=== PATIENT | female | born 1995 | race African-American/Black ===

== ENCOUNTER 2017-09-21 15:18 | Emergency (ER) | payer MEDICAID ==
[~2017-09-21] VITALS: Ht 172.7 cm; Wt 63.5 kg
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
[2017-09-21] MEDS ORDERED: ZOFRAN ODT4 MG ORAL (17:14)
[2017-09-21 17:18] LABS: APPEARANCE,URINE CLEAR; KETONES,URINE 1+ (NEGATIVE); LEUKOCYTE ESTERASE ,URINE 2+ (NEGATIVE); NITRITE,URINE NEGATIVE (NEGATIVE); PH,URINE 6.5 (4.5-8.0); PROTEIN,URINE 2+ (NEGATIVE); UROBILINOGEN,URINE 4 MG/DL (0.0-1.0)
[2017-09-21 17:33] LABS: BACTERIA,URINE FEW /HPF; SQUAMOUS EPITHELIAL CELL,UR FEW /LPF (NONE/OCC)
[2017-09-21] MEDS ORDERED: TYLENOL EXTRA500 MG ORAL (17:46)
[2017-09-21] MEDS ORDERED: ZANTAC150 MG ORAL (17:46)
[2017-09-21 18:00] VITALS: BP 112/73
== END 2017-09-21 18:00 | disposition home or self-care (01) ==
LOC: EMR 16:12
DX: B34.9 Viral infection, unspecified (principal); E86.0 Dehydration
CPT/HCPCS: 36415; 81001; 81025; 99284

== ENCOUNTER 2017-12-16 20:52 | Emergency (ER) | payer MEDICAID ==
[~2017-12-16] VITALS: Ht 172.7 cm; Wt 62.1 kg
[~2017-12-16 20:52] MED LIST: TYLENOL EXTRA500 MG ORAL; ZANTAC150 MG ORAL; ZOFRAN ODT4 MG ORAL
[2017-12-16] MEDS ORDERED: IBUPROFEN600 MG ORAL (21:39)
[2017-12-16] MEDS ORDERED: Dexamethasone 4mg/ml vial ORAL ONE (21:45)
--- NOTE | 2017-12-16 21:48 | Emergency Room Report ---
History of Present Illness General Chief Complaint: Sore Throat Source: Patient Present Illness HPI 22-year-old female presents with left-sided sore throat and bilateral ear pain for 1 week no associated fever or chills or trouble swallowing, eating multiple sick contacts with friends children No frequent otitis or pharyngitis no History of diabetes Allergies: Coded Allergies: No Known Allergies (Unverified , 09/21/17) Patient History Past Medical History: none Past Surgical History: none Pertinent Family History: none Social History: Denies: smoking, alcohol use, drug use Last Menstrual Period: nov 23 Now: No : 2 Immunizations: UTD Reviewed Nursing Documentation: PMH: Agreed, PSxH: Agreed Nursing Documentation-PMH Past Medical History: No Stated History Review of Systems All Other Systems: negative except mentioned in HPI Physical Exam Vital Signs Date Time Temp Pulse Resp B/P (MAP) Pulse Ox O2 Delivery O2 Flow Rate FiO2 12/16/17 21:21 99.2 89 18 114/72 99 Room Air 99.1 Sp02 EP Interpretation: reviewed, normal General Appearance: normal inspection, well appearing, no apparent distress, alert, GCS 15, non-toxic Head: normocephalic, atraumatic Eyes: bilateral eye PERRL, bilateral eye EOMI ENT: normal ENT inspection, hearing grossly normal, normal pharynx, no angioedema, normal voice, TMs + canals normal, uvula midline, moist mucus membranes Neck: normal inspection, full range of motion, supple, thyroid normal, no meningismus, no bony tend Respiratory: normal inspection, lungs clear, normal breath sounds, no rhonchi, no respiratory distress, no retraction, no accessory muscle use, no wheezing, speaking full sentences Cardiovascular #1: regular rate, rhythm, no edema, no JVD, normal capillary refill Gastrointestinal: normal inspection, normal bowel sounds, non tender, soft, no mass, no peritonitis, non-distended, no guarding, no hernia, no pulsatile mass Genitourinary: no CVA tenderness Musculoskeletal: normal inspection, back normal, normal range of motion, no calf tenderness, pelvis stable, Napoleon's Sign negative Neurologic: normal inspection, alert, oriented x3, responsive, story analyst III-XII nml as tested, motor strength/tone normal, cerebellar normal, normal gait, speech normal Psychiatric: normal inspection, judgement/insight normal, mood/affect normal, no suicidal/homicidal ideation, no delusions Skin: normal inspection, normal color, no rash Lymphatic: normal inspection, no adenopathy Medical Decision Making Diagnostic Impression: Primary Impression: Sore throat ER Course Vital signs stable, afebrile Oropharynx clear, no otitis media, no strep Gave empiric Decadron and Motrin Rx Motrin as needed for sore throat Likely viral pharyngitis ER course: Patient has remained stable during ED stay. Disposition: Patient is to be discharged to home. Prescriptions given are motrin Patient is instructed to follow up with their primary care doctor within 5 days. Strict return precautions discussed with patient such as fever, chills, worsening/severe pain, nausea, vomiting, which may indicate severe illness. Patient verbalizes understanding and agrees with plan. Please note that this Emergency Department Report was dictated using Alliance Cardremote pilot operator technology software, occasionally this can lead to erroneous entry secondary to interpretation by the dictation equipment Last Vital Signs Date Time Temp Pulse Resp B/P (MAP) Pulse Ox O2 Delivery O2 Flow Rate FiO2 12/16/17 21:21 99.2 89 18 114/72 99 Room Air 99.1 Status: improved Disposition: HOME, SELF-CARE Condition: Improved Scripts Ibuprofen* (MOTRIN*) 600 Mg Tablet 600 MG ORAL THREE TIMES A DAY for sore throat for 7 Days, #30 TAB 0 Refills Prov: NANCY ANAYA M.D. 12/16/17 Patient Instructions: Pharyngitis, [id number] NANCY ANAYA M.D. Dec 16, 2017 21:48
[2017-12-16 22:05] VITALS: BP 114/72
== END 2017-12-16 22:05 | disposition home or self-care (01) ==
LOC: EMR 21:44
DX: J02.9 Acute pharyngitis, unspecified (principal)
CPT/HCPCS: 99283; J1100

== ENCOUNTER 2018-01-31 20:05 | Emergency (ER) | payer MEDICAID ==
[~2018-01-31] VITALS: Ht 172.7 cm; Wt 65.8 kg
[~2018-01-31 20:05] MED LIST changes: +IBUPROFEN600 MG ORAL
[2018-01-31] MEDS ORDERED: NKM (20:16)
[2018-01-31 21:11] LABS: APPEARANCE,URINE CLEAR; BILIRUBIN, URINE NEGATIVE (NEGATIVE); GLUCOSE, URINE (UA) NEGATIVE (NEGATIVE); KETONES,URINE NEGATIVE (NEGATIVE); LEUKOCYTE ESTERASE ,URINE 1+ (NEGATIVE); NITRITE,URINE NEGATIVE (NEGATIVE); PH,URINE 6 (4.5-8.0); PROTEIN,URINE NEGATIVE (NEGATIVE); UROBILINOGEN,URINE 1 MG/DL (0.0-1.0)
[2018-01-31 21:14] LABS: COLOR,URINE YELLOW
[2018-01-31 21:29] VITALS: BP_SYST 116; BP_SYST 123; BP_DIAS 53; BP_DIAS 66
--- NOTE | 2018-02-01 10:17 | Diagnostic Imaging Report ---
Indication: Bleeding, positive test, pelvic pain Technique: Transabdominal and transvaginal images Comparison: none Findings: Bladder was empty at the time of exam, so pelvic viscera not identifiable on transabdominal images. Transabdominal images demonstrate uterus measuring 8.8 cm in length by 5.1 cm AP. Within the endometrium, there is a gestational sac. This demonstrates a yolk sac, but no pole and no heart activity. Estimated gestational age by mean sac diameter is 5 weeks 4 days. No subchorionic hemorrhage demonstrated. No myometrial abnormality. Right ovary measures 3.5 cm length. The left ovary measures 2.6 cm length. No free cul-de-sac fluid demonstrated Impression: Positive for intrauterine gestational sac. Estimated gestational age 5 weeks 4 days by mean sac diameter. Yolk sac is identified. No pole or heart activity demonstrated. Differential considerations include very early with parts not yet visible, versus nonviable . Correlate with serial beta hCGs, consider follow-up sonography as clinically indicated
--- NOTE | 2018-02-02 02:46 | Emergency Room Report ---
History of Present Illness General Chief Complaint: Complications Source: Patient Present Illness HPI Patient presents with complaints of lower abdominal cramping Denies any bleeding at this time however triage reported questionable scant blood Denies any vomiting or diarrhea denies any chest pain Denies any fevers or chills Denies any recent trauma Patient has not had any ultrasound for this at she feels that she is likely 4 weeks Allergies: Coded Allergies: No Known Allergies (Unverified , 09/21/17) Patient History Past Medical History: see triage record Pertinent Family History: none Last Menstrual Period: 12/19/17 Now: No Reviewed Nursing Documentation: PMH: Agreed; PSxH: Agreed Nursing Documentation-PMH Past Medical History: No Stated History Review of Systems All Other Systems: negative except mentioned in HPI Physical Exam Vital Signs Date Time Temp Pulse Resp B/P (MAP) Pulse Ox O2 Delivery O2 Flow Rate FiO2 01/31/18 20:12 98.5 81 16 116/66 97 Room Air 98.4 Sp02 EP Interpretation: reviewed, normal General Appearance: well appearing, no apparent distress Head: normocephalic, atraumatic Eyes: bilateral eye PERRL, bilateral eye EOMI ENT: hearing grossly normal, normal pharynx, TMs + canals normal, uvula midline Neck: full range of motion, supple, no meningismus, no bony tend Respiratory: lungs clear, normal breath sounds, no rhonchi, no respiratory distress, no retraction, no accessory muscle use Cardiovascular #1: normal peripheral pulses, regular rate, rhythm, no edema, no gallop, no JVD, no murmur Gastrointestinal: normal bowel sounds, non tender, soft, no mass, no organomegaly, non-distended, no guarding, no hernia, no pulsatile mass, no rebound Genitourinary: no CVA tenderness Musculoskeletal: normal inspection Neurologic: oriented x3, responsive, caddy packer III-XII nml as tested, motor strength/ tone normal, sensory intact Psychiatric: mood/affect normal Skin: normal color, no rash, warm/dry, palpation normal Lymphatic: normal inspection, no adenopathy Medical Decision Making Diagnostic Impression: Primary Impression: threatened miscarriage ER Course With the patient's history and examination, multiple differentials considered, including but not limited to , ectopic , ovarian torsion, gastritis, cholecystitis, pancreatitis, appendicitis Patient's urine sample does not show any infection Ultrasound shows intrauterine however a very early And patient will have close outpatient follow-up Labs Test 01/31/18 19:30 01/31/18 20:30 Human Chorionic Gonadotropin, Quant 94082 mIU/mL (1-6) Urine Color Yellow Urine Appearance Clear Urine pH 6 (4.5-8.0) Urine Specific [place] 1.020 (1.005-1.035) Urine Protein Negative (NEGATIVE) Urine Glucose (UA) Negative (NEGATIVE) Urine Ketones Negative (NEGATIVE) Urine Occult Blood 3+ (NEGATIVE) Urine Nitrite Negative (NEGATIVE) Urine Bilirubin Negative (NEGATIVE) Urine Urobilinogen 1 MG/DL (0.0-1.0) Urine Leukocyte Esterase 1+ (NEGATIVE) Urine RBC 2-4 /HPF (0 - 2) Urine WBC 0-2 /HPF (0 - 2) Urine Squamous Epithelial Cells Moderate /LPF (NONE/OCC) Urine Bacteria Few /HPF (NONE) Urine Mucus Moderate /LPF (NONE/OCC) Urine HCG, Qualitative Positive (NEGATIVE) CT/MRI/US Diagnostic Results CT/MRI/US Diagnostic Results : Impression pelvic ultrasound:Impression: Positive for intrauterine gestational sac. Estimated gestational age 5 weeks 4 days by mean sac diameter. Yolk sac is identified. No pole or heart activity demonstrated. Differential considerations include very early with parts not yet visible, versus nonviable . Correlate with serial beta hCGs, consider follow-up sonography as clinically indicated Last Vital Signs Date Time Temp Pulse Resp B/P (MAP) Pulse Ox O2 Delivery O2 Flow Rate FiO2 01/31/18 21:29 98.5 79 16 116/66 97 Room Air 98.4 Status: improved Disposition: HOME, SELF-CARE Condition: Improved Referrals: [facility],REFERRING (PCP) Patient Instructions: Threatened Miscarriage, [id number] Additional Instructions: Patient is provided with the discharge instructions notified to follow up with primary doctor in the next 2-3 days otherwise return to the er with any worsening symptoms. Please note that this report is being documented using [employer] to [employer] technology. This can lead to erroneous entry secondary to incorrect interpretation by the dictating instrument. Malcolm Noyola DO Feb 02, 2018 02:46
== END 2018-01-31 21:30 | disposition home or self-care (01) ==
LOC: EMR 21:12
DX: O20.0 Threatened abortion (principal); Z3A.01 Less than 8 weeks gestation of pregnancy
CPT/HCPCS: 36415; 76801; 76810; 81003; 81025; 84702; 86900; 86901; 99284

== ENCOUNTER 2018-09-26 12:53 | Emergency (ER) | payer MEDICAID ==
[~2018-09-26] VITALS: Ht 172.7 cm; Wt 73.5 kg
[~2018-09-26 12:53] MED LIST changes: +NKM
[2018-09-26 13:52] LABS: APPEARANCE,URINE CLOUDY; BILIRUBIN, URINE NEGATIVE (NEGATIVE); GLUCOSE, URINE (UA) NEGATIVE (NEGATIVE); KETONES,URINE 1+ (NEGATIVE); LEUKOCYTE ESTERASE ,URINE 3+ (NEGATIVE); NITRITE,URINE NEGATIVE (NEGATIVE); PH,URINE 7 (4.5-8.0); PROTEIN,URINE 1+ (NEGATIVE); UROBILINOGEN,URINE 1 MG/DL (0.0-1.0)
[2018-09-26 13:54] LABS: COLOR,URINE YELLOW
[2018-09-26 14:02] LABS: EOSINOPHILS % (AUTO) 0.3 % (0.0-3.0); HEMATOCRIT 37.2 % (37.0-47.0); HEMOGLOBIN 12.1 G/DL (12.0-16.0); LYMPHOCYTES % (AUTO) 23.3 % (20.0-45.0); MEAN CORPUSCULAR VOLUME 78 FL (80-99); MONOCYTES % (AUTO) 6.3 % (1.0-10.0); NEUTROPHILS % (AUTO) 69.1 % (45.0-75.0); PLATELET COUNT 222 K/UL (150-450); RED BLOOD COUNT 4.77 M/UL (4.20-5.40); RED CELL DISTRIBUTION WIDTH 14.8 % (11.6-14.8)
[2018-09-26 14:28] LABS: ANION GAP 46 mmol/L (5-15); BLOOD UREA NITROGEN 5 mg/dL (7-18); CALCIUM 7.5 MG/DL (8.5-10.1); CARBON DIOXIDE 16 MMOL/L (21-32); CHLORIDE 93 MMOL/L (98-107); CREATININE 0.6 MG/DL (0.55-1.30); POTASSIUM 3.5 MMOL/L (3.5-5.1); SODIUM 155 MMOL/L (136-145)
[2018-09-26 14:34] LABS: ALANINE AMINOTRANSFERASE 13 U/L (12-78); ALBUMIN 3.2 G/DL (3.4-5.0); ALKALINE PHOSPHATASE 54 U/L (46-116); ASPARTATE AMINO TRANSFERASE 12 U/L (15-37); BILIRUBIN,TOTAL 0.5 MG/DL (0.2-1.0)
--- NOTE | 2018-09-26 15:18 | Diagnostic Imaging Report ---
Indication: Pelvic pain and vaginal bleeding, positive test Technique: Transabdominal and transvaginal images. Doppler interrogation of the bilateral ovaries Comparison: 01/31/2018 Findings: Retroverted uterus measures 10.3 cm length by 6.8 cm AP. There is an intrauterine gestational sac. This demonstrates a yolk sac, but no pole demonstrated. Mean sac diameter is 25 mm, corresponding to estimated gestational age of 5 weeks 2 days. No subchorionic hemorrhage demonstrated. Left ovary measures 3.8 cm in length there is a right ovary measures 3.3 cm length. No adnexal mass demonstrated. Normal ovarian blood flow. No free cul-de-sac fluid. Possible bilateral paraovarian varicosities noted Impression: Intrauterine gestational sac, containing a yolk sac but no pole. Findings consistent with anembryonic Negative for adnexal mass Bilateral paraovarian varicosities.
--- NOTE | 2018-09-26 16:28 | Emergency Room Report ---
History of Present Illness General Chief Complaint: Complications Source: Patient Present Illness HPI Patient states that she found out 2 weeks ago she is . She states that today she developed suprapubic cramping and vaginal bleeding. She states it has been light bleeding. She denies dysuria or hematuria. She has fever or chills. She denies nausea or vomiting. She doesn't have ongoing pain. She did go to a women's health clinic to confirm her . She has no other complaints. Allergies: Coded Allergies: No Known Allergies (Unverified , 09/21/17) Patient History Past Medical History: none, see triage record Social History: Denies: smoking, alcohol use, drug use Last Menstrual Period: aug 08 Now: Yes : 5 Para: 1 Reviewed Nursing Documentation: PMH: Agreed; PSxH: Agreed Nursing Documentation-PMH Past Medical History: No Stated History Review of Systems All Other Systems: negative except mentioned in HPI Physical Exam Vital Signs Date Time Temp Pulse Resp B/P (MAP) Pulse Ox O2 Delivery O2 Flow Rate FiO2 09/26/18 13:12 98.2 77 18 104/70 98 Room Air Sp02 EP Interpretation: reviewed, normal General Appearance: no apparent distress, alert, GCS 15, non-toxic Head: normocephalic, atraumatic Eyes: bilateral eye normal inspection, bilateral eye PERRL ENT: hearing grossly normal, normal pharynx, no angioedema, normal voice Neck: full range of motion, supple/symm/no masses Respiratory: chest non-tender, lungs clear, normal breath sounds, no respiratory distress, no retraction, no accessory muscle use, speaking full sentences Cardiovascular #1: regular rate, rhythm, no edema Gastrointestinal: normal bowel sounds, soft, non-distended, no guarding, no rebound, tenderness - mild suprapubic ttp Rectal: deferred Musculoskeletal: back normal, gait/station normal, normal range of motion, non- tender Neurologic: alert, oriented x3, responsive, motor strength/tone normal, sensory intact, speech normal Psychiatric: judgement/insight normal, memory normal, mood/affect normal, no suicidal/homicidal ideation Skin: normal color, no rash, warm/dry, well hydrated Medical Decision Making Diagnostic Impression: Primary Impression: Threatened ER Course This patient is found to have an elevated hCG at 83,000. The patient's pelvic ultrasound does show a gestational sac with a yolk sac, however, there is no pole and although this could be a very early viable , this combination of hCG and ultrasound is concerning for an abnormal and an embryonic . Patient was very distressed about this. She was crying hysterically. She was instructed to follow-up at the women's health clinic in 3 -5 days for repeat hCG and ultrasound. Treatment at this time will be expectant. I will give the patient pain medication in case she does have more bleeding and cramping. She was given very close return precautions and follow- up instructions. Please note that this Emergency Department Report was dictated using Endomondoinside sales account manager technology software, occasionally this can lead to erroneous entry secondary to interpretation by the dictation equipment. Laboratory Tests Test 09/26/18 13:25 09/26/18 13:31 Urine Color Yellow Urine Appearance Cloudy Urine pH 7 (4.5-8.0) Urine Specific [place] 1.015 (1.005-1.035) Urine Protein 1+ (NEGATIVE) H Urine Glucose (UA) Negative (NEGATIVE) Urine Ketones 1+ (NEGATIVE) H Urine Blood 5+ (NEGATIVE) H Urine Nitrite Negative (NEGATIVE) Urine Bilirubin Negative (NEGATIVE) Urine Urobilinogen 1 MG/DL (0.0-1.0) H Urine Leukocyte Esterase 3+ (NEGATIVE) H Urine RBC 5-10 /HPF (0 - 2) H Urine WBC 10-15 /HPF (0 - 2) H Urine Squamous Epithelial Cells Moderate /LPF (NONE/OCC) H Urine Bacteria Moderate /HPF (NONE) H Urine Mucus Moderate /LPF (NONE/OCC) H White Blood Count 7.0 K/UL (4.8-10.8) Red Blood Count 4.77 M/UL (4.20-5.40) Hemoglobin 12.1 G/DL (12.0-16.0) Hematocrit 37.2 % (37.0-47.0) Mean Corpuscular Volume 78 FL (80-99) L Mean Corpuscular Hemoglobin 25.3 PG (27.0-31.0) L Mean Corpuscular Hemoglobin Concent 32.5 G/DL (32.0-36.0) Red Cell Distribution Width 14.8 % (11.6-14.8) Platelet Count 222 K/UL (150-450) Mean Platelet Volume 7.0 FL (6.5-10.1) Neutrophils (%) (Auto) 69.1 % (45.0-75.0) Lymphocytes (%) (Auto) 23.3 % (20.0-45.0) Monocytes (%) (Auto) 6.3 % (1.0-10.0) Eosinophils (%) (Auto) 0.3 % (0.0-3.0) Basophils (%) (Auto) 1.0 % (0.0-2.0) Sodium Level 155 MMOL/L (136-145) H Potassium Level 3.5 MMOL/L (3.5-5.1) Chloride Level 93 MMOL/L (98-107) L Carbon Dioxide Level 16 MMOL/L (21-32) L Anion Gap 46 mmol/L (5-15) H Blood Urea Nitrogen 5 mg/dL (7-18) L Creatinine 0.6 MG/DL (0.55-1.30) Estimate Glomerular Filtration Rate > 60 mL/min (>60) Glucose Level 77 MG/DL (74-106) Calcium Level 7.5 MG/DL (8.5-10.1) L Total Bilirubin 0.5 MG/DL (0.2-1.0) Aspartate Amino Transferase (AST) 12 U/L (15-37) L Alanine Aminotransferase (ALT) 13 U/L (12-78) Alkaline Phosphatase 54 U/L (46-116) Total Protein 6.4 G/DL (6.4-8.2) Albumin 3.2 G/DL (3.4-5.0) L Globulin 3.2 g/dL Albumin/Globulin Ratio 1.0 (1.0-2.7) Human Chorionic Gonadotropin, Quant 56114 mIU/mL (1-6) H CT/MRI/US Diagnostic Results CT/MRI/US Diagnostic Results : Imaging Test Ordered: US Pelvis Impression indings: Retroverted uterus measures 10.3 cm length by 6.8 cm AP. There is an intrauterine gestational sac. This demonstrates a yolk sac, but no pole demonstrated. Mean sac diameter is 25 mm, corresponding to estimated gestational age of 5 weeks 2 days. No subchorionic hemorrhage demonstrated. Left ovary measures 3.8 cm in length there is a right ovary measures 3.3 cm length. No adnexal mass demonstrated. Normal ovarian blood flow. No free cul-de-sac fluid. Possible bilateral paraovarian varicosities noted Impression: Intrauterine gestational sac, containing a yolk sac but no pole. Findings consistent with anembryonic Negative for adnexal mass Bilateral paraovarian varicosities. Last Vital Signs Date Time Temp Pulse Resp B/P (MAP) Pulse Ox O2 Delivery O2 Flow Rate FiO2 09/26/18 13:12 98.2 77 18 104/70 98 Room Air Status: improved Disposition: HOME, SELF-CARE Condition: Improved Referrals: NON PHYSICIAN (PCP) Adide Aguilar DO Sep 26, 2018 16:28
[2018-09-26] MEDS ORDERED: NORCO 5-325 TA1 EACH ORAL (16:29)
[2018-09-26] MEDS ORDERED: IBUPROFEN600 MG ORAL (16:29)
[2018-09-26 16:42] VITALS: BP 106/72
== END 2018-09-26 16:40 | disposition home or self-care (01) ==
LOC: EMR 13:47
DX: O20.0 Threatened abortion (principal); Z3A.01 Less than 8 weeks gestation of pregnancy
CPT/HCPCS: 36415; 76801; 76830; 80053; 81003; 84702; 85025; 86900; 86901; 87086; 96360; 99284

== ENCOUNTER 2020-07-16 12:33 | Emergency (ER) | payer MEDICAID ==
[~2020-07-16] VITALS: Ht 172.7 cm; Wt 61.2 kg
[~2020-07-16 12:33] MED LIST changes: +NORCO 5-325 TA1 EACH ORAL
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
[2020-07-16 13:00] VITALS: BP 119/76
[2020-07-16] MEDS ORDERED: Metoclopramide 10mg/2ml Inj IVP ONE (13:00)
--- NOTE | 2020-07-16 13:09 | NUR ---
ED Nurse Note: US @ bedside
[2020-07-16 13:18] LABS: APPEARANCE,URINE CLEAR; BILIRUBIN, URINE NEGATIVE (NEGATIVE); GLUCOSE, URINE (UA) NEGATIVE (NEGATIVE); KETONES,URINE NEGATIVE (NEGATIVE); LEUKOCYTE ESTERASE ,URINE 2+ (NEGATIVE); NITRITE,URINE NEGATIVE (NEGATIVE); PH,URINE 6.5 (4.5-8.0); PROTEIN,URINE NEGATIVE (NEGATIVE); UROBILINOGEN,URINE NORMAL MG/DL (0.0-1.0)
[2020-07-16 13:27] LABS: COLOR,URINE YELLOW
[2020-07-16 13:28] LABS: EOSINOPHILS % (AUTO) 0.4 % (0.0-3.0); HEMATOCRIT 39.9 % (37.0-47.0); HEMOGLOBIN 13.7 G/DL (12.0-16.0); LYMPHOCYTES % (AUTO) 21.4 % (20.0-45.0); MEAN CORPUSCULAR VOLUME 86 FL (80-99); MONOCYTES % (AUTO) 6.6 % (1.0-10.0); NEUTROPHILS % (AUTO) 69.5 % (45.0-75.0); PLATELET COUNT 261 K/UL (150-450); RED BLOOD COUNT 4.64 M/UL (4.20-5.40); RED CELL DISTRIBUTION WIDTH 12.6 % (11.6-14.8); WHITE BLOOD COUNT 7.7 K/UL (4.8-10.8)
[2020-07-16 13:35] LABS: ANION GAP 10 mmol/L (5-15); BLOOD UREA NITROGEN 4 mg/dL (7-18); CALCIUM 8.7 MG/DL (8.5-10.1); CARBON DIOXIDE 26 MMOL/L (21-32); CHLORIDE 104 MMOL/L (98-107); CREATININE 0.9 MG/DL (0.55-1.30); POTASSIUM 3.6 MMOL/L (3.5-5.1); SODIUM 140 MMOL/L (136-145)
[2020-07-16 13:42] LABS: ALANINE AMINOTRANSFERASE 14 U/L (12-78); ALBUMIN 3.6 G/DL (3.4-5.0); ALKALINE PHOSPHATASE 64 U/L (46-116); ASPARTATE AMINO TRANSFERASE 13 U/L (15-37); BILIRUBIN,TOTAL 0.9 MG/DL (0.2-1.0)
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
[2020-07-16] MEDS ORDERED: TYLENOL EXTRA500 MG ORAL (14:31)
[2020-07-16] MEDS ORDERED: MUPIROCIN22 GM TOPIC (14:31)
[2020-07-16] MEDS ORDERED: CEPHALEXIN500 MG ORAL (14:31)
[2020-07-16 14:35] VITALS: BP 128/71
--- NOTE | 2020-07-16 14:35 | NUR ---
Note christophramiro in EDM - 07/16/20 at 1442 by ABIMBOLAE ER DISCHARGE NOTE: Patient is cleared to be discharged per ERMD, pt is aox4, on room air, with stable vital signs. pt was given dc and prescription instructions, pt was able to verbalize understanding, pt id band and iv site removed without complications. pt is able to ambulate with steady gait. pt took all belongings.
== END 2020-07-16 14:35 | disposition home or self-care (01) ==
LOC: EMR 13:05
DX: O26.91 Pregnancy related conditions, unspecified, first trimester (principal); O23.41 Unspecified infection of urinary tract in pregnancy, first trimester; O26.851 Spotting complicating pregnancy, first trimester; R10.9 Unspecified abdominal pain; S00.93XA Contusion of unspecified part of head, initial encounter; S30.810A Abrasion of lower back and pelvis, initial encounter; Z3A.01 Less than 8 weeks gestation of pregnancy; Y04.2XXA Assault by strike against or bumped into by another person, initial encounter; Y92.9 Unspecified place or not applicable; Z91.040 Latex allergy status
CPT/HCPCS: 36415; 76815; 76817; 80053; 80307; 81003; 84702; 85025; 86850; 86900; 86901; 87086; 96361; 96374; J2765; J7030; Z7502; 99284